=== PATIENT | female | born 1970 | race Caucasian/White ===

== ENCOUNTER 2019-04-01 20:13 | Emergency (ER) | payer OTHER, SELFPAY ==
[2019-03-31 10:40] VITALS: BMI 34.8
[2019-04-01 20:13] VITALS: BP 133/78; PULSE 111; RESP 20; TEMP 37.6; O2SAT 97; BMI 34.7
[2019-04-01] MEDS: 0.9% Normal Saline 1,000 ML 1000 ML IV (21:50)
[2019-04-01] MEDS: Ketorolac 30 MG/ML Syringe IV (21:50)
[2019-04-01] MEDS: MethylPREDNISolone 125 MG/2 ML Vial IV (21:50)
--- NOTE | 2019-04-01 21:50 | RAD_ITS ---
STUDY: X-RAY CHEST REASON FOR EXAM: Female, 48 years old. Cough fever recent diagnosis of strep throat TECHNIQUE: PA and lateral views of the chest. COMPARISON: None. FINDINGS: The lungs are clear and expanded. There is no demonstrated pleural abnormality. Normal size heart. Normal mediastinum and justus. Normal visualized pulmonary arteries. Normal visualized aortic arch and descending thoracic aorta. Normal visualized thoracic spine. Normal visualized ribs, clavicles, and shoulders. There is no demonstrated abnormality of the visualized soft tissue structures of the upper abdomen. RAD/Chest PA and Lateral IMPRESSION: Normal x-ray examination of the chest. Electronically Signed: Malou Andrews MD at 22:03 EST Tel , Service support ,
[2019-04-01 22:10] LABS: Absolute Lymphocyte Count 1.84 X10^3/uL (0.83-4.51); Absolute Neutrophil Count 10.8 X10^3/uL (2.0-7.7); Basophil# 0.08 X10^3/uL; Basophil% 0.6 % (0-1); Eosinophil# 0.27 X10^3/uL; Eosinophils% 1.9 % (0-5); Hematocrit 43.1 % (37-47); Hemoglobin 14.2 g/dL (12.0-15.0); Lymphocyte # 1.84 X10^3/ul (4.0); Lymphocyte % 12.7 % (19-41); Mean Corp Hgb Conc 32.9 g/dL (32-36); Mean Corpuscular Hgb 31.9 pg (27.0-32.0); Mean Corpuscular Volume 96.9 fL (81-99); Mean Platelet Vol. 9.7 fl (6.2-12.0); Monocyte# 1.47 X10^3/uL; Monocyte% 10.1 % (0-10); NRBC Flagged by Analyzer 0 % (0-5); Neutrophil # 10.77 X10^3/uL (2.7-7.7); Neutrophil % 74.2 % (47-70); Platelet Count 352 K/mm3 (150-450); RBC Distribution Width CV 12.2 % (11.6-14.6); RBC Distribution Width SD 43.7 fl (35.1-43.9); Red Blood Count 4.45 M/mm3 (4.2-5.4); White Blood Count 14.5 K/mm3 (4.4-11.0)
[2019-04-01 22:18] LABS: Anion Gap 7 (5-15); BUN 12 mg/dL (7-18); BUN/Creat Ratio 16.7 RATIO (10-20); Calcium,Total 8.8 mg/dL (8.5-10.1); Chloride 108 mmol/L (98-107); Creatinine, Serum 0.72 mg/dL (0.55-1.02); EST Glomerular Filtration Rate 91 mL/min (>60); Est Glom Filt Rate - Afr Amer 110 mL/min (>60); Glucose 118 mg/dL (74-106); Potassium 3.5 mmol/L (3.5-5.1); Sodium Level 140 mmol/L (136-145)
--- NOTE | 2019-04-01 22:37 | ED.DCSUM_ITS ---
History of Present Illness Chief Complaint: Cough Informant: Patient Onset: Days Context: Gradual Onset Timing: Waxes and wanes Current Severity: Moderate Maximum Severity: Moderate Narrative: Patient presents secondary to cough, shortness of breath, fever. She was in [facility] last week where she developed some URI type symptoms. She states multiple people on the trip had similar illness. After returning home she developed increased sore throat. She went to urgent care yesterday. They placed her on amoxicillin for presumed strep. Patient states she feels like the lymph nodes in her neck are improving, but this evening developed severe cough and had trouble catching her breath. She states she coughed to the point where she was vomiting. She has had a fever between 101-102 throughout her illness. She has been taking Chloraseptic lozenges, Mucinex DM, Claritin, and amoxicillin. Past Medical History - Allergies and Home Meds Allergies/Adverse Reactions: Allergies No Known Allergies Allergy (Verified 04/01/19 20:16) Primary Care Physician: [facility],Out of [Primary Care Provider] - Prior records reviewed: Yes Past Medical History: - - Reviewed Smoking Status: Current some day smoker Review of Systems General: Reports: Fever Eyes: Denies: Visual changes - bilaterally ENT: Reports: Sore throat, - - Congestion Cardiovascular: Denies: Chest pain Respiratory: Reports: Dyspnea, Cough, Sputum Gastrointestinal: Reports: Vomiting - Posttussive emesis. Denies: Abdominal pain Musculoskeletal: Reports: Myalgias. Denies: Extremity Pain Neurological: Denies: Headache Endocrine: Denies: Polyuria, Polydipsia Hematologic: Denies: Easy bruising Allergy: Denies: Uticaria Physical Exam Vital Signs/Narrative: Vital Signs Temp Pulse Resp BP Pulse Ox 04/01/19 20:13 99.6 F H 111 H 20 H 133/78 H 97 Inital Vital Signs reviewed: Yes General: Well nourished, Well developed, - - Patient with frequent, moist cough during exam. Head: Normocephalic ENT: Moist mucous membranes, TM's clear, - - Posterior pharyngeal drainage. 2+ tonsils. Uvula midline. Neck: Supple, - - Bilateral anterior cervical lymphadenopathy. Cardiovascular: Tachycardia Respiratory: No distress, Decreased Air Movement Abdomen: Soft, Nontender, Hypoactive bowel sounds Extremities: Nontender, No edema Skin: Normal color, No rash Neurological: Alert, Oriented x3 Psychological: Normal affect Diagnostic/Tx/Re-eval Impressions Chest X-Ray 04/01/19 21:50 IMPRESSION: Normal x-ray examination of the chest. Electronically Signed: Malou Andrews MD at 22:03 EST Tel , Service support , 04/01/19 21:50 Chest PA and Lateral [RAD] Stat Laboratory Results 04/01/19 04/01/19 21:51 21:51 WBC 14.5 H RBC 4.45 Hgb 14.2 Hct 43.1 MCV 96.9 MCH 31.9 MCHC 32.9 RDW Std Deviation 43.7 RDW Coeff of Santos 12.2 Plt Count 352 MPV 9.7 Immature Gran % (Auto) 0.500 Neut % (Auto) 74.2 H Lymph % (Auto) 12.7 L [place] % (Auto) 10.1 H Eos % (Auto) 1.9 Baso % (Auto) 0.6 Absolute Neuts (auto) 10.8 H Absolute Lymphs (auto) 1.84 Nucleated RBC % 0 Sodium 140 Potassium 3.5 Chloride 108 H Carbon Dioxide 25.0 Anion Gap 7 BUN 12 Creatinine 0.72 Estim Creat Clear Calc 94.30 Est GFR (MDRD) Af Amer 110 Est GFR (MDRD) Non-Af 91 BUN/Creatinine Ratio 16.7 Glucose 118 H Calcium 8.8 - Medical Decision Making Patient was given Toradol and IV fluids. She was given a dose of IV Solu-Medrol as well as p.o. Hycodan for cough. On repeat evaluation patient reports feeling much improved. She will be given a prescription for Hycodan. She will continue her amoxicillin at home. ED Disposition - Plan for ED Patient: Disposition: Home or Assisted Living Diagnosis: Pharyngitis, URI (upper respiratory infection) Instructions: Acute Bronchitis, PHARYNGITIS, Strep (Presumed) Prescriptions: Hydrocodone Bit/Homatropine [Hycodan Syrup] 5 ml PO Q4H PRN PRN 3 Days #100 ml PRN Reason: Cough Referrals: [facility] Doctor,Out of [Primary Care Provider] - Keep Cyndi appointment
[2019-04-01 22:57] VITALS: PULSE 72; RESP 19; O2SAT 98
[2019-04-01 22:58] VITALS: BP 124/76; PULSE 75; RESP 18; TEMP 37.2; O2SAT 98
== END 2019-04-01 23:01 | disposition home or self-care (01) ==
PROVIDERS: Emergency Provider Emergency Medicine
DX: J02.9 Acute pharyngitis, unspecified (principal); J06.9 Acute upper respiratory infection, unspecified; F17.200 Nicotine dependence, unspecified, uncomplicated
CPT/HCPCS: 71046; 80048; 85025; 96361; 96374; 96375; 99284; J7030; A4216